=== PATIENT | female | born 1955 | race Caucasian/White ===

== ENCOUNTER 2022-04-24 05:51 | Observation (INO) ==
[2022-04-24] MEDS ORDERED: Lactated Ringers 1000 ml BAG 1,000 ML IV SCH (06:00)
[2022-04-24] MEDS ORDERED: Buffered Lidocaine 1% SYRIN 1 ml INTRADERM ONE (06:00)
[2022-04-24] MEDS ORDERED: ceFAZolin 2 GM in NS PREMIX 2 GM/100 ML BAG IVPB ONE (06:12)
[2022-04-24] MEDS ORDERED: Midazolam 2 mg/2 ml VIAL 1 mg/ml 2 ml VIAL (2 mg) ONE (07:04)
[2022-04-24] MEDS ORDERED: fentaNYL 100 mcg/2 ml 50 MCG/ML VIAL ONE (07:04)
[2022-04-24] MEDS ORDERED: Bupivacaine 0.5% SDV PF 30ML VIAL ONE ×2 (07:04→09:37)
[2022-04-24] MEDS ORDERED: Propofol 10 mg/ml 100 ML BTL 100 ML ONE (07:05)
[2022-04-24] MEDS ORDERED: Phenylephrine IV 10 MG/ML 1 ml VIAL ONE (07:13)
[2022-04-24] MEDS ORDERED: Dexamethasone IV 4 MG/ML VIAL 1 ml VIAL ONE (07:13)
[2022-04-24] MEDS ORDERED: Ondansetron 4 mg VIAL 2 MG/ML 2 ml VIAL ONE (07:13)
[2022-04-24] MEDS ORDERED: Vancomycin 1,000 MG VIAL ONE (07:19)
[2022-04-24] MEDS ORDERED: Ondansetron 4 mg VIAL 2 MG/ML 2 ml VIAL IV PRN ×2 (07:20→08:23)
[2022-04-24] MEDS ORDERED: Lactulose 30 ml UDC PO PRN (07:20)
[2022-04-24] MEDS ORDERED: Magnesium Hydroxide LIQ 30 ML UDC PO PRN (07:20)
[2022-04-24] MEDS ORDERED: Ondansetron ODT 4 mg TAB 4 MG TAB PO PRN (07:20)
[2022-04-24] MEDS ORDERED: Morphine 2 MG/ML SYRINGE IV PRN (07:20)
[2022-04-24] MEDS ORDERED: Phenylephrine 40 mcg/mL 10mL (400mcg) SYRINGE ONE (07:51)
[2022-04-24] MEDS ORDERED: Naloxone 0.4 mg VIAL 0.4 mg/ml 1 ml VIAL IV PRN (08:23)
[2022-04-24] MEDS ORDERED: fentaNYL 100 mcg/2 ml 50 MCG/ML VIAL IV PRN (08:23)
[2022-04-24] MEDS ORDERED: Metoclopramide 5 MG/ML VIAL (10 mg) IV PRN (08:23)
[2022-04-24] MEDS: Lactated Ringers 1000 ml BAG 1,000 ML IV SCH ×2 (12:00→23:43)
[2022-04-24] MEDS: Magnesium Hydroxide LIQ 30 ML UDC PO SCH ×2 (12:16→21:19)
[2022-04-24] MEDS: Vitamin THERAPEUTIC TAB PO SCH (12:16)
[2022-04-24] MEDS ORDERED: Dextrose 50% Syringe 50 ml 25 GM/50 ML SYRINGE IV PUSH PRN (12:38)
[2022-04-24] MEDS: ceFAZolin 1 GM ADVAN 1 GM in NS 0.9% 50 ML 50 ML IVPB SCH ×2 (16:06→23:45)
[2022-04-25 05:31] LABS: Hematocrit 34 % (35-47); Hemoglobin 11.2 g/dL (12.0-16.0); Mean Platelet Volume 7.6 fL (7.4-10.4); Platelet Count 295 10^3/uL (150-450)
[2022-04-25 05:47] LABS: Calcium 8.9 mg/dL (8.6-10.3); eGFR CKD-EPI 69.2 (>60)
[2022-04-25] MEDS: ceFAZolin 1 GM ADVAN 1 GM in NS 0.9% 50 ML 50 ML IVPB SCH (08:10)
[2022-04-25] MEDS: Vitamin THERAPEUTIC TAB PO SCH (08:14)
[2022-04-25] MEDS: Magnesium Hydroxide LIQ 30 ML UDC PO SCH (08:15)
[2022-04-25 11:15] VITALS: BP 104/63
== END 2022-04-25 12:10 | disposition home or self-care (01) ==
LOC: SSU 05:51 → OR 05:51
PROVIDERS: ADMIT Orthopaedic Surgery; ATTEND Orthopaedic Surgery